=== PATIENT | male | born 1965 | race African-American/Black ===

== ENCOUNTER 2024-04-19 09:34 | Emergency (ER) | payer OTHER, SELFPAY ==
--- NOTE | ~2024-04-19 | US_ITS ---
EXAMINATION: US scrotum doppler DATE: 04/19/2024 10:22 INDICATION: Left testicular pain radiating to the abdomen TECHNIQUE: Testicular sonogram utilizing grayscale and Doppler COMPARISON: None. FINDINGS: The right testis measures 3.2 x 1.9 x 2.4 cm. The left testis measures 3.0 x 1.8 x 2.4 cm. Symmetric normal grayscale appearance to both testes. Mild tubular ectasia to the right rete testes with a few small cysts measuring up to 4 mm maximal diameter at the right testicular hilum. There is normal vasc ular flow to both testes. A few small right epididymal cysts the largest measuring up to 4 mm. The ri ght epididymis is otherwise normal with normal vascular flow. In the left epididymis there is a large r serpiginous fluid-filled duct without internal vascular flow on color Doppler likely represented a dilated spermatic duct which measures up to 1.1 cm in maximal diameter. There is normal vascular flow in the surrounding left epididymis. Small bilateral hydroceles. No varicocele. IMPRESSION: 1. A few small right epididymal head cysts and larger serpiginous dilated duct within the left epidi dymis which can be seen in the setting of prior vasectomy. Correlate with surgical history. 2. Mild cystic dilation of the right rete testis. Otherwise normal bilateral testes. Reviewed, dictated and finalized at [facility] [employer] [facility] IMPRESSION: 1. A few small right epididymal head cysts and larger serpiginous dilated duct within the left epididymis which can be seen in the setting of prior vasectomy . Correlate with surgical history. 2. Mild cystic dilation of the right rete testis. Otherwise normal bilateral te stes.
--- NOTE | 2024-04-19 09:37 | ED.MALEGU ---
HPI - Male Genitourinary General Chief complaint: Urogenital-Male Stated complaint: testicle pain Time Seen by Provider: 04/19/24 09:36 Source: patient Mode of arrival: ambulatory Limitations: no limitations History of Present Illness [facility] Narrative: This is a 58-year-old male who presents to the ED for chief complaint of left testicular pain x2 days. Reports it is been intermittent with occasional sharp pains. Reports sharp shooting pain into the abdomen on occasion. States he works at the [employer] and will notice it when he is standing for long periods of time. States it is mainly on the left side and has minimal right-sided pain. Denies swelling or injury. Denies concern for STD. He does feel like he is having some difficulty with voiding lately. Denies fevers, chills, nausea, vomiting, diarrhea or pain with bowel movements. Related Data Allergies Allergy/AdvReac Type Severity Reaction Status Date / Time No Known Allergies Allergy Unverified 04/19/24 09:34 Review of Systems Review of Systems: All systems as dictated in [facility] Social History Social History Smoking status: Never smoker Alcohol intake: current Exam Narrative: GENERAL: Well-appearing, well-nourished, and in no acute distress. HEAD: Normocephalic, atraumatic. EYES: PERRLA and EOMI. ENT: Nares clear, no rhinorrhea or epistaxis. Mucous membranes moist. Oropharynx without tonsillar hypertrophy exudate or other lesions. NECK: Supple. No adenopathy or masses. CHEST: No respiratory distress. Clear to auscultation. No wheezes rales or rhonchi HEART: Regular rate and rhythm. No murmur heard. Normal peripheral pulses. ABDOMEN: Soft, nontender, nondistended, normal active bowel sounds. MSK: Normal range of motion. No edema. SKIN: Warm, dry, no rash. NEURO: Alert and oriented x4. No focal deficits. PSYCH: Normal mood and affect. : No testicular swelling or lesions present. Penile discharge. No tenderness to the testicle. No hernia palpated. Course Vital Signs Vital signs: Vital Signs Temperature 98.4 F 04/19/24 09:40 Pulse Rate 64 04/19/24 09:40 Respiratory Rate 17 04/19/24 09:40 Blood Pressure 153/85 H 04/19/24 09:40 Pulse Oximetry 100 04/19/24 09:40 Oxygen Delivery Room Air 04/19/24 09:40 Temperature 98.2 F 04/19/24 11:14 Pulse Rate 61 04/19/24 11:14 Respiratory Rate 17 04/19/24 11:14 Blood Pressure 161/77 H 04/19/24 11:14 Pulse Oximetry 99 04/19/24 11:14 Oxygen Delivery Room Air 04/19/24 09:40 MDM - Male Genitourinary MDM Narrative Medical decision making narrative: This is a 58-year-old male who presents to the ED for chief complaint of testicular pain or on the left side. Vitals are normal. Exam is benign overall. He has no concerns for STDs today. Lab work unremarkable as well. Urinalysis shows trace leuks but otherwise grossly negative. Ultrasound scrotum: IMPRESSION: 1. A few small right epididymal head cysts and larger serpiginous dilated duct within the left epididymis which can be seen in the setting of prior vasectomy. Correlate with surgical history. 2. Mild cystic dilation of the right rete testis. Otherwise normal bilateral testes.. Recommended patient follow-up with Urology based on the above results. Pt will be discharged in stable condition. Return precautions given and supportive measures discussed. Pt is understanding and agreeable with plan for discharge and follow-up with PCP/urology. Lab Data 04/19/24 09:57 04/19/24 09:57 Labs: Lab Results 04/19/24 Range/Units 09:57 WBC 3.9 L (4.5-10.0) K/mm3 RBC 5.94 (4.6-6.20) M/mm3 Hgb 14.0 (14.0-18.0) g/dL Hct 44.0 (42.0-52.0) % MCV 74.1 L (80-100) fl MCH 23.6 L (26-34) pg MCHC 31.8 L (32-36) g/dl RDW 16.0 H (11.5-14.5) % Plt Count 249 (150-375) k/mm3 MPV 8.1 (7.4-10.4) fl Immature Gran % (Auto) 0.3 (0-0.5) % Neut % (Auto) 51.0 (45.5-73.1) % Lymph % (Auto) 27.9 (18.3-44.2) % [place] % (Auto) 13.6 H (2.6-8.5) % Eos % (Auto) 5.9 H (0-4.4) % Baso % (Auto) 1.3 H (0.2-1.2) % Lymph # (Auto) 1.09 (0.9-3.2) K/mm3 [place] # (Auto) 0.5 (0.1-0.6) K/mm3 Eos # (Auto) 0.2 (0-0.3) K/mm3 Baso # (Auto) 0.1 (0.0-0.1) K/mm3 Abs Immat Gran (auto) 0.01 (0.00-0.031) K/mm3 Absolute Neuts (auto) 2.0 (1.3-6.7) K/mm3 Absolute Nucleated RBC 0.000 (0.0-0.012) K/mm3 Nucleated RBC % 0.0 (0.0-0.2) % Platelet Estimate Adequate (Adequate) Schistocytes None seen Sodium 140 (137-145) mmol/L Potassium 3.7 (3.4-5.0) mmol/L Chloride 107 (98-107) mmol/L Carbon Dioxide 28 (22-30) mmol/L Anion Gap 5 (4-12) mmol/L BUN 23 H (9-20) mg/dL Creatinine 1.00 (0.7-1.3) mg/dL Estim Creat Clear Calc 70 ml/min Estimated GFR > 60 (59 - ) Glucose 87 (65-110) mg/dL Calcium 9.3 (8.4-10.2) mg/dL Total Bilirubin 0.3 (0.2-1.3) mg/dL AST 34 (17-59) U/L ALT 23 (6-50) U/L Alkaline Phosphatase 53 (38-126) U/L Total Protein 7.0 (6.3-8.2) g/dL Albumin 4.1 (3.5-5.1) g/dL Prostate Specific Ag 2.2 (< OR = 4.0) ng/mL Urine Color Yellow (Yellow) Urine Appearance Clear (Clear) Urine pH 6.0 (5.0-9.0) Ur Specific [place] 1.023 (1.001-1.035) Urine Protein Negative (Negative) mg/dL Urine Glucose (UA) Negative (Negative) mg/dL Urine Ketones Negative (Negative) mg/dL Ur Blood (Man) Negative (Negative) Urine Nitrate Negative (Negative) Urine Bilirubin Negative (Negative) Urine Urobilinogen 1.0 (<2.0) mg/dL Leukocyte Esterase Rfl Trace H (Negative) ANTHONY/UL Urine RBC 0-2 (0-2) /hpf Urine WBC 0-5 (0-3) /hpf Ur Squamous Epith Cells None seen (Few) /hpf Urine Bacteria None seen /hpf Urine Casts 0-2 Discharge Plan Discharge Clinical Impression: Left testicular pain Patient Disposition: Home, Self-Care Condition: Stable Instructions: Antibiotic Form, Testicle Pain (ED) Additional Instructions: Your exam and imaging today are reassuring overall. Please follow-up with Urology doctor for further evaluation. If you have any new or worsening symptoms please return to the ER for further evaluation. Follow-up/Referrals: Wilbert,James Macias MD [Non-Staff] - Time of Disposition: 11:02
[2024-04-19 09:40] VITALS: BP 153/85; PULSE 64; RESP 17; TEMP 36.9; O2SAT 100
[2024-04-19 10:03] LABS: Basophils Absolute Auto 0.1 K/mm3 (0.0-0.1); Basophils Percent Auto 1.3 % (0.2-1.2); Eosinophils Absolute Auto 0.2 K/mm3 (0-0.3); Eosinophils Percent Auto 5.9 % (0-4.4); Immature Granulocyte Absolute 0.01 K/mm3 (0.00-0.031); Immature Granulocyte Percent A 0.3 % (0-0.5); Lymphocytes Absolute Auto 1.09 K/mm3 (0.9-3.2); Lymphocytes Percent Auto 27.9 % (18.3-44.2); Mean Corpuscular HGB Conc 31.8 g/dl (32-36); Mean Corpuscular Hemoglobin 23.6 pg (26-34); Mean Corpuscular Volume 74.1 fl (80-100); Mean Platelet Volume 8.1 fl (7.4-10.4); Monocytes Absolute Auto 0.5 K/mm3 (0.1-0.6); Monocytes Percent Auto 13.6 % (2.6-8.5); Platelet Count Result 249 k/mm3 (150-375); Red Blood Count 5.94 M/mm3 (4.6-6.20); White Blood Count 3.9 K/mm3 (4.5-10.0)
[2024-04-19 10:07] LABS: Add Urine Microscopic? YES; Appearance Urine Clear (Clear); Bacteria Urine None Seen /hpf; Bilirubin Urine Negative (Negative); Blood Urine Negative (Negative); Color Urine Yellow (Yellow); Glucose Urine UA Negative (Negative); Ketones Urine Negative (Negative); Leukocyte Esterase Ur Trace LEU/UL (Negative); Nitrate Urine Negative (Negative); Non Pathogenic Casts 0-2; Protein Urine Negative (Negative); RBC Urine 0-2 /hpf (0-2); Specific Grav Ur 1.023 (1.001-1.035); Squamous Epithelial Cell Urine None Seen /hpf (Few); WBC Urine 0-5 /hpf (0-3)
[2024-04-19 10:15] LABS: Alanine Aminotransferase 23 U/L (6-50); Albumin Level 4.1 g/dL (3.5-5.1); Alkaline Phosphatase 53 U/L (38-126); Anion Gap 5 mmol/L (4-12); Aspartate Amino Transferase 34 U/L (17-59); Blood Urea Nitrogen 23 mg/dL (9-20); Calcium 9.3 mg/dL (8.4-10.2); Carbon Dioxide 28 mmol/L (22-30); Chloride 107 mmol/L (98-107); Estimated CRCL calculation 70 ml/min; Estimated Glomerular Filt Rate > 60; Glucose 87 mg/dL (65-110); Potassium 3.7 mmol/L (3.4-5.0); Sodium 140 mmol/L (137-145)
[2024-04-19 10:22] LABS: Platelet Estimate Adequate (Adequate); Schistocytes None Seen
[2024-04-19 10:37] LABS: Bilirubin,Total 0.3 mg/dL (0.2-1.3)
[2024-04-19 10:55] LABS: Prostate Specific Antigen 2.2 ng/mL (< OR = 4.0)
[2024-04-19 11:14] VITALS: BP 161/77; PULSE 61; RESP 17; TEMP 36.8; O2SAT 99
== END 2024-04-19 11:15 | disposition home or self-care (01) ==
PROVIDERS: Emergency Provider Physician Assistant
DX: N50.812 Left testicular pain (principal); N50.3 Cyst of epididymis
CPT/HCPCS: 36415; 76870; 80053; 81001; 84153; 85025; 93976; 99284